=== PATIENT | female | born 1980 | race Caucasian/White ===

== ENCOUNTER 2024-10-02 09:32 | Outpatient (CLI) | payer BC, SELFPAY ==
--- NOTE | ~2024-10-02 | CT_ITS ---
CLINICAL INDICATION: Solitary pulmonary nodule COMPARISON: None. TECHNIQUE: Multiple contiguous axial images of the chest was performed without the administration of intravenous contrast. This CT examination was performed utilizing dose reduction techniques. DLP: 123 mGy-cm FINDINGS/OBSERVATIONS: LUNG:Multiple pulmonary nodules are identified. Within the right upper lobe is a pleural-based solid nodule measuring 26 x 9.7 mm (axial series, imag es 35 - 38). Within the right upper lobe is a 3.2 mm nodule (axial series, images 43-44). Within the right lower lobe is a 4.6 mm nodule (axial series, image 59). Within the right middle lobe is a 7.2 x 7 mm nodule (axial series, images 64 - 65). Within the left upper lobe is a 5 mm pericardial lymph node (axial series, image 70). The remainder of the lungs are clear. HEART: The heart is of normal size, without pericardial effusion. MEDIASTINUM: Morphologically suspicious and pathologically enlarged lymph nodes are identified within the bilatera l axilla. The largest is within the right axilla measuring 17.4 mm in short axis dimension. A subpectoral lymph node is also noted measuring 17.5 mm in short axis dimension. No pathologically enlarged or morphologically suspicious lymph nodes are identified within the medias tinum. SOFT TISSUES OF THE CHEST: Unremarkable. BONES OF THE CHEST: No acute fracture. No discrete lytic lesions are appreciated. Within the vertebral body of T8, to the left of midline is a 4 mm sclerotic focus, too small to chantale cterize. IMPRESSION: Right upper lobe pleural-based nodule measuring 2.6 cm in greatest dimension. Additional subcentimeter nodules, primarily within the right hemithorax. No mediastinal lymphadenopathy. Bilateral axillary and left subpectoral lymphadenopathy is noted for which focused ultrasound may be performed for better characterization. Alternatively, PET CT may be performed prior to tissue sampling for further evaluation. Reviewed, dictated and finalized at location A. IMPRESSION: Right upper lobe pleural-based nodule measuring 2.6 cm in greatest dimension. Additional subcentimeter nodules, primarily within the right hemithorax. No mediastinal lymphadenopathy. Bilateral axillary and left subpectoral lymphadenopathy is noted for which focu sed ultrasound may be performed for better characterization. Alternatively, PET CT may be performed prior to tissue sampling for further jeanne luation.
== END 2024-10-02 09:33 | disposition home or self-care (01) ==
LOC: MICIMG 09:34
PROVIDERS: PCP Family Medicine; Visit Provider Family Medicine
DX: R91.1 Solitary pulmonary nodule (principal)
CPT/HCPCS: 71250

== ENCOUNTER 2024-10-28 08:22 | Outpatient (CLI) | payer BC, SELFPAY ==
--- NOTE | ~2024-10-28 | PE_ITS ---
EXAMINATION: PET skull to mid thigh DATE: 10/28/2024 11:28 INDICATION: Solitary pulmonary nodule TECHNIQUE: Blood glucose level was 87 mg/dL. 10.016 mCi of 18-fluorodeoxyglucose (18-FDG) was administered i.v. Low dose computed tomography (CT) images were acquired from the base of the brain to the proximal thighs for attenuation correction and anatomic localization. Positron emission tomography (PET) images were acquired in the same distribution beginning 58 minutes after injection. Images including fused PET/CT images were reconstructed in axial, coronal, and sagittal planes. Automated exposure control technique was employed. The dose- length product was 1178.94 mGy-cm. COMPARISON: Chest CT dated 10/02/2024 FINDINGS: Head/neck: There is symmetric increased activity in the oral cavity, palatine tonsils, parotid glands, submandibular glands, laryngeal muscles and ocular muscles without CT correlate, likely physiologic. No pathologically enlarged cervical lymphadenopathy or suspicious foci of increased FDG uptake in the visualized head or neck. Chest: 2.7 x 0.8 cm pleural-based nodule with smooth margins along the anterior right upper lobe with mild increased FDG uptake with maximal SUV of 4.2. There are a couple 4 mm nodules at the lingula without evident FDG uptake although sensitivity is low for small nodules particularly at the lung bases due to respiratory motion. No other suspicious pulmonary nodules or pleural effusion. Heart size is normal. No pericardial effusion. Thoracic aorta is normal in caliber. There is mild FDG uptake associated with a few mildly prominent and FDG avid bilateral axillary lymph nodes the largest on the right measuring 1.3 cm in maximal short axis diameter with maximal SUV of 3.9 and the largest on the left measuring 1.0 cm with maximal SUV of 3.8. No other pathologically enlarged or abnormally FDG avid thoracic lymphadenopathy. Small sliding-type hiatal hernia with focal increased uptake with maximal SUV of 5.9 at the gastroesophageal junction. Abdomen/pelvis/proximal thighs: Physiologic renal accumulation and excretion of FDG activity in the kidneys, bladder and along portions of ureters. Normal degree and heterogenous pattern of increased uptake throughout the liver without radiologic correlate or dominant FDG avid lesion. The gallbladder, pancreas, spleen and bilateral adrenal glands are normal. Mild uptake scattered throughout the bowels without radiologic correlate, also likely physiologic. Normal appendix. Likely tubal ligation clip situated between the uterus and the left ovary. There is a second likely tubal ligation clip which may be displaced positioned in the cul-de-sac well posterior and inferior to the right ovary. No other abnormal foci of increased FDG uptake or pathologically enlarged lymphadenopathy in the abdomen, pelvis or proximal thighs. Musculoskeletal: No suspicious lytic, blastic or abnormally FDG avid bone lesions. IMPRESSION: 1. Single oblong 2.7 x 0.8 cm pleural-based nodule along the anterior right upper lobe with mild FDG uptake, slightly less than the liver. Differential would include noncalcified pleural plaque, benign fibrous tumor of the pleura and lymphoma. Primary mesothelioma would be atypical in the absence of chronic prior asbestos exposure and metastatic disease and likely reactive additional concerning lesions or known history of prior malignancy. 2. Mild increased uptake associated with a few normal-sized to mildly enlarged bilateral axillary lymph nodes which could be reactive although differential includes lymphoma or metastatic disease in the appropriate clinical setting. For both this and the pleural-based lesion would recommend correlation with any prior outside imaging if available. Depending on the level of clinical concern could consider either biopsy or follow-up CT in 3-6 months. Reviewed, dictated and finalized at location A. IMPRESSION: 1. Single oblong 2.7 x 0.8 cm pleural-based nodule along the anterior right upp er lobe with mild FDG uptake, slightly less than the liver. Differential would include noncalcified pleural plaque, benign fibrous tumor of the pleura and lym phoma. Primary mesothelioma would be atypical in the absence of chronic prior a sbestos exposure and metastatic disease and likely reactive additional concerni ng lesions or known history of prior malignancy. 2. Mild increased uptake associated with a few normal-sized to mildly enlarged bilateral axillary lymph nodes which could be reactive although differential in cludes lymphoma or metastatic disease in the appropriate clinical setting. For both this and the pleural-based lesion would recommend correlation with any stephen or outside imaging if available. Depending on the level of clinical concern cou ld consider either biopsy or follow-up CT in 3-6 months.
--- OUTSIDE RECORDS SUMMARY | 2024-10-28 08:42 | XMS_ITS | Clinical Summary ---
Author Organization [facility] [address] [place] [id number] Care Team Providers Care Vegetable Cutter Name Role Phone Jaime Bonner MD Primary Care Provider [phone] Jaime Bonner MD Unavailable [phone] Allergies No known active allergies Encounters Date Type Department Care Team Description 10/02/2024 9:30 AM CDT - 10/02/2024 11:59 PM CDT Hospital Encounter [facility] [address] [place] [address] Discharge Disposition: Discharge to home or self care from Last 3 Months Surgical History Surgery Date Site/Laterality Comments BREAST BIOPSY 03/12/1998 - 03/11/1999 Left Excision biopsy Social History Tobacco Use Types Packs/Day Years Used Date Smoking Tobacco: Never Assessed Comments No Sex and Gender Information Value Date Recorded Sex Assigned at Not on file Legal Sex Female 8:09 PM SOFTWARE RELEASE MANAGER Gender Identity Not on file Sexual Orientation Not on file Obstetrics History Para Term AB IAB SAB Ectopic Multiple Livin g Live Births 3 2 2 Date Outcome GA Total Labor Labor/2nd/3rd Weight Sex Type Anes PTL Hannah A1 A5 Name Clin Term Term Last Filed Vital Signs Vital Sign Reading Time Taken Comments Blood Pressure 129/95 03/26/2019 9:10 AM SOFTWARE RELEASE MANAGER Pulse 91 03/26/2019 9:10 AM SOFTWARE RELEASE MANAGER Temperature 37 C (98.6 F) 03/26/2019 9:10 AM SOFTWARE RELEASE MANAGER Respiratory Rate - - Oxygen Saturation 99% 03/26/2019 9:10 AM SOFTWARE RELEASE MANAGER Inhaled Oxygen Concentration - - Weight 99.5 kg (219 lb 5.8 oz) 03/26/2019 9:10 A M SOFTWARE RELEASE MANAGER Height 165.1 cm (5' 5) 03/26/2019 9:10 AM SOFTWARE RELEASE MANAGER Body Mass Index 36.5 03/26/2019 9:10 AM SOFTWARE RELEASE MANAGER Plan of Treatment Health Maintenance Due Date Last Done Comments Cervical Cancer Screening 1979 Colon Cancer Screening-Colonoscopy 1979 Depression Screening 1979 Hepatitis C Screening 1979 DTaP/Tdap/Td Vaccine (1 - Tdap) 1990 Varicella Vaccines (1 of 2 - 13+ 2-dose series) 1992 Hepatitis B Screening 1997 Regular Well Visit/Exam 18-64 1997 HPV Vaccines (1 - 3-dose SCDM series) 2006 Covid-19 Vaccine ( season) 2023 01/13/2021, 04/13/2020, 03/16/2020 Influenza Vaccine (#1) 2024 , 12/13/2020, 11/18/2019, Additional history exists Breast Cancer Screening-Mammogram 03/10/2025 03/10/2024, 11/29/2022, 11/25/2021, Additional history exists Pneumococcal vaccine <65 Aged Out No longer eligible based on patient's age to complete this topic Procedures Procedure Name Priority Date/Time Associated Diagnosis Comments CT BODY OUTSIDE REFERENCE Routine 10/02/2024 9:30 AM CDT SCREENING MAMMOGRAM BILATERAL W NELSON Schedule Routine, Read Routine (OP Routine) 03/10/2024 12:39 PM SOFTWARE RELEASE MANAGER Screening mammogram, encounter for from Last 3 Months or Most Recently Relevant to Health Maintenance Results * CT Body Outside Reference (10/02/2024 9:30 AM CDT) Narrative [id number] - 10/22/2024 1:11 PM CDT This order has been auto-finalized and does not contain a result. us Provider Transcribed Order IMG CT PROCEDURES Fin al Result [id number] * Screening Mammogram Bilateral W Nelson (03/10/2024 12:39 PM SOFTWARE RELEASE MANAGER) Anatomical Region Laterality Modality Breast Bilateral Mammography Impressions 03/10/2024 1:32 PM SOFTWARE RELEASE MANAGER BI-RADS ATLAS category (overall): 2 - Benign There is no mammographic evidence of malignancy. A 1 year screening mammogram is recommended. The patient has been or will be contacted. We recommend annual screening mammography for women at average risk of breast cancer beginning at age 40, based on guidelines of the [employer] (ACR Practice Parameter for the Performance of Screening and Diagnostic Mammography) and [employer]. For women with and elevated risk of breast cancer, please refer to the ACR Practice Parameter for specific screening recommendations. The patient will be entered into a reminder system with a target due date of 1 year for her next screening exam. Narrative 03/10/2024 1:32 PM SOFTWARE RELEASE MANAGER Screening Mammogram Bilateral W Nelson: 03/10/24 The study was acquired using full field digital technology and interpreted from soft copy. 2D digital mammographic views, as well as 3D digital tomosynthesis were performed in the CC and MLO projections. This study was resulted using Computer-Aided Detection (CAD). CLINICAL: Screening mammogram, encounter for. No relevant medical history has been documented for this patient. No known family history of breast cancer. COMPARISONS: 11/29/2022 Diagnostic Mammogram Bilateral W Nelson 11/29/2022 US Breast Bilateral Limited 11/25/2021 US Breast Bilateral Limited 11/25/2021 Diagnostic Mammogram Bilateral W Nelson 05/11/2021 US Breast Bilateral Limited 05/11/2021 Diagnostic Mammogram Bilateral W Nelson 11/10/2020 US Breast Bilateral Limited 11/10/2020 Diagnostic Mammogram Bilateral W Nelson BREAST TISSUE: The breasts are heterogeneously dense, which may obscure small masses. FINDINGS: There are stable small benign circumscribed masses in both breasts. There is no new suspicious finding in either breast on mammogram. us Self Screening Mammogram IMG MAMMO PROCEDURES Fi nal Result from Last 3 Months or Most Recently Relevant to Health Maintenance Insurance [facility] Care Teams Vegetable Cutter Relationship Specialty Start Date End Date Jaime Bonner MD PCP - General Family Medicine 10/29/20 Jaime Bonner MD 10/29/20
== END 2024-10-28 08:23 | disposition home or self-care (01) ==
PROVIDERS: PCP Family Medicine; Visit Provider Family Medicine
DX: R91.1 Solitary pulmonary nodule (principal)
CPT/HCPCS: 78815; A9552